=== PATIENT | female | born 1985 | race Caucasian/White ===

== ENCOUNTER 2018-01-26 11:53 | Emergency (ER) | payer MEDICAID ==
[~2018-01-26] VITALS: Ht 170.2 cm; Wt 65.3 kg
[2018-01-26 11:58] VITALS: BP 115/88
[2018-01-26] MEDS ORDERED: KETOROLAC TROMETH 60MG/2ML VIAL IM ONE (12:30)
== END 2018-01-26 13:20 | disposition home or self-care (01) ==
LOC: ER 11:56
DX: S39.012A Strain of muscle, fascia and tendon of lower back, initial encounter (principal); F17.210 Nicotine dependence, cigarettes, uncomplicated; Z88.8 Allergy status to other drugs, medicaments and biological substances; K59.00 Constipation, unspecified; X58.XXXA Exposure to other specified factors, initial encounter; Y93.89 Activity, other specified; Y99.8 Other external cause status; Y92.89 Other specified places as the place of occurrence of the external cause
CPT/HCPCS: 74176; 81002; 96372; 99284; J1885

== ENCOUNTER 2018-12-17 13:14 | Emergency (ER) | payer MEDICAID ==
[~2018-12-17] VITALS: Ht 170.2 cm; Wt 72.1 kg
[2018-12-17 13:57] VITALS: BP 131/67
[2018-12-17] MEDS ORDERED: IBUPROFEN 800 MG TAB PO ONE (14:15)
== END 2018-12-17 15:12 | disposition home or self-care (01) ==
LOC: ER 13:14
DX: S93.402A Sprain of unspecified ligament of left ankle, initial encounter (principal); F17.210 Nicotine dependence, cigarettes, uncomplicated; Z88.0 Allergy status to penicillin; Z88.8 Allergy status to other drugs, medicaments and biological substances; X50.1XXA Overexertion from prolonged static or awkward postures, initial encounter; Y93.89 Activity, other specified; Y99.8 Other external cause status; Y92.89 Other specified places as the place of occurrence of the external cause
CPT/HCPCS: 29515; 73610

== ENCOUNTER 2022-02-06 19:44 | Emergency (ER) | payer MEDICAID ==
[~2022-02-06] VITALS: Ht 170.2 cm; Wt 79.4 kg
[2022-02-06 19:52] VITALS: BP 107/86
[2022-02-06] MEDS ORDERED: DexAMETHasone 4 MG TAB PO ONE (20:15)
[2022-02-06] MEDS ORDERED: diphenhdrAMINE HCL 25 MG CAP PO ONE (20:15)
[2022-02-06] MEDS ORDERED: FAMOTIDINE 20 MG TAB PO ONE (20:15)
[2022-02-06] MEDS ORDERED: LEVO-28 PO (20:52)
[2022-02-06] MEDS ORDERED: METR500T14 PO (20:52)
== END 2022-02-06 21:27 | disposition home or self-care (01) ==
LOC: ER 19:44
DX: R22.0 Localized swelling, mass and lump, head (principal); T36.4X5A Adverse effect of tetracyclines, initial encounter; Z90.89 Acquired absence of other organs; Z88.0 Allergy status to penicillin; Z88.1 Allergy status to other antibiotic agents; Y92.89 Other specified places as the place of occurrence of the external cause
CPT/HCPCS: 99284; J8540

== ENCOUNTER 2025-06-07 12:59 | Emergency (ER) | payer MEDICAID ==
[~2025-06-07] VITALS: Ht 170.2 cm; Wt 68.2 kg
[~2025-06-07 12:59] MED LIST: LEVO500T91 PO; METR-344 PO
[2025-06-07 14:30] VITALS: BP 128/83; PULSE 101; RESP 18; O2SAT 98
[2025-06-07 14:36] VITALS: TEMP 98.2
[2025-06-07] MEDS: ACETAMINOPHEN 325 MG TAB PO ONE (14:36)
[2025-06-07] MEDS ORDERED: BACDST PO (17:03)
--- NOTE | 2025-06-07 17:48 | ED.PDOC ---
History of Present Illness HPI Comments 39-year-old female presents with chief complaint of rash with associated pain behind her left ear for three weeks. Chief Complaint: Earache Time Seen by MD: 13:30 Primary Care Provider: DANIEL Remy Notes: Nurses Notes, Medications, Allergies Allergies: Coded Allergies: Cephalexin (Unverified Allergy, Unknown, 01/26/18) Penicillins (Unverified Allergy, Unknown, 01/26/18) Uncoded Allergies: DOXYCLINE (Allergy, Unknown, 06/07/25) Home Meds Active Scripts Sulfamethoxazole W/Trimethopri (Bactrim Ds Tablet) 1 Tab Tb, 1 TAB PO BID for 7 Days, #14 TAB Prov:PEDRO LYONS MD 06/07/25 Metronidazole (Flagyl) 500 Mg Tab, 500 MG PO BID for 14 Days, #28 TAB Prov:SHILPI GOODEN MD 02/06/22 Levofloxacin Hemihydrate (LEVOFLOXACIN) 500 Mg Tab, 1 TAB PO DAILY for 14 Days, #14 TAB Prov:SHILPI GOODEN MD 02/06/22 Information Source: Patient Mode of Arrival: Ambulatory Severity: Moderate Timing: Weeks Duration: Since onset Prehospital treatment: None Past Medical History PAST MEDICAL HISTORY: Denies Surgical History: Tonsillectomy COMMUNITY COORDINATOR History: No Pertinent COMMUNITY COORDINATOR History Family History Family History: Reviewed,noncontributory to illness Social History Smoker: Other Alcohol: Occasionally Drugs: Denies Drug Use Lives In: Home All Other Systems: Reviewed and Negative (Comprehensive review of systems are negative unless otherwise stated in HPI) Physical Exam General Appearance: No Apparent Distress, Normal HEENT: Head (Cellulitis to mastoid process behind left ear), Pharynx Normal, TMs Normal, Other (Sinus congestion, otherwise normal ENT inspection) Neck: Full Range of Motion, Non-Tender, Normal, Normal Inspection Respiratory: Chest Non-Tender, Lungs Clear, No Accessory Muscle Use, No Respiratory Distress, Normal Breath Sounds Cardiovascular: No Edema, No JVD, No Murmur, No Gallop, Normal Peripheral Pulses, Regular Rate/Rhythm Breast Exam: Deferred Gastrointestinal: No Organomegaly, Non Tender, No Pulsatile Mass, Normal Bowel Sounds, Soft Genitalia: Deferred Pelvic: Deferred Rectal: Deferred Extremities: No calf tenderness, Normal capillary refill, Normal inspection, Normal range of motion, Non-tender, No pedal edema Musculoskeletal : Apperance: Normal Neurologic: Alert, 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 Was a procedure done?: No Differential Dx Considerations may include: Sinus congestion, cellulitis, viral, URI, among others X-Ray, Labs, Meds, VS Vital Signs Date Time Temp Pulse Resp B/P (MAP) Pulse Ox O2 Delivery O2 Flow Rate FiO2 06/07/25 14:36 98.2 06/07/25 14:30 101 18 98 Room Air 06/07/25 14:30 98.2 101 18 128/83 (98) 98 98.2 06/07/25 13:15 98.4 102 18 118/86 99 98.4 Time of 1ST Reevaluation: 14:00 Reevaluation 1ST: Unchanged Patient Education/Counseling: Diagnosis, Treatment, Need For Follow Up Family Education/Counseling: No Family Present SEPSIS Sepsis Screen Date sepsis recognized/suspect: Jun 07, 2025 Time Sepsis recognized/suspect: 8 Recent Procedure: No On Antibiotic Therapy: No Respiratory Rate >20: No Heart Rate >90: Yes Temp<36 C (96.8 F) or >38.3 C: No SBP <90 or MAP <65 mmHG: No New Acute Mental Status Change: No Is the patient on CPAP, BIPAP,: No Vital Signs Date Time Temp Pulse Resp B/P (MAP) Pulse Ox O2 Delivery O2 Flow Rate FiO2 06/07/25 14:36 98.2 06/07/25 14:30 101 18 98 Room Air 06/07/25 14:30 98.2 101 18 128/83 (98) 98 98.2 06/07/25 13:15 98.4 102 18 118/86 99 98.4 Departure 1 Departure Time of Disposition: 06:52 (Patient likely with cellulitis. We will discharge patient home) Impression: Primary Impression: Sinus congestion Additional Impression: Cellulitis Disposition: 01 HOME / SELF CARE / HOMELESS Condition: Serious Additional Instructions: You were prescribed antibiotics. Please take as directed. e-Prescriptions Sulfamethoxazole W/Trimethopri (Bactrim Ds Tablet) 1 Tab Tb 1 TAB PO BID for 7 Days, #14 TAB Prov: PEDRO LYONS MD 06/07/25 Discharged With: Self Critical Care Note Critical Care Time?: No Stability Stability form required: No Heart Score Heart Score: Heart Score Response (Comments) Value History N/A 0 EKG N/A 0 Age N/A 0 Risk Factors N/A 0 Troponin N/A 0 Total 0 I personally scribed for PEDRO LYONS MD ([email or web address]) on 06/07/25 at 17:48. Electronically submitted by Scooby Francis ([email or web address]). PEDRO LYONS MD Jun 07, 2025 17:48
== END 2025-06-07 17:55 | disposition home or self-care (01) ==
LOC: ER 12:59
DX: L03.90 Cellulitis, unspecified (principal); R09.81 Nasal congestion; F17.200 Nicotine dependence, unspecified, uncomplicated; Z90.89 Acquired absence of other organs; Z88.1 Allergy status to other antibiotic agents; Z88.0 Allergy status to penicillin